=== PATIENT | female | born 1955 | race Two or more races ===

== ENCOUNTER 2025-01-23 10:03 | Outpatient (AMB) | payer MEDICARE, MEDICAID, SELFPAY ==
--- OUTSIDE RECORDS SUMMARY | 2025-01-23 09:45 | XMS_ITS | Encounter Summary ---
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 No 01/16/2025 Food Access & Nutrition Answer Date Rec orded Do you have access to a vari ety of food including fruits and vegetables? Yes 01/16/2025 Health Literacy Answer Date Recorded How often do you need to hav e someone help you when you read instructions, pamphlets, or other written material from your doctor or pharmacy? Never 01/16/2025 Caregiver: How often do you need to have someone help you when you read instructions, pamphlets, or other written material from your doctor or pharmacy? Not on file 01/16/2025 Financial Risk Answer Date Recorded How hard is it for you to pa y for the very basics like food, housing, medical care, and air conditioning / heating? Not very hard 01/16/2025 Transportation Answer Date Recorded Has the lack of transportati on kept you from meetings, work, or from getting things needed for daily living? No Has the lack of transportati on kept you from medical appointments or from getting medications? No 01/16/2025 Social Isolation Answer Date Recorded How often do you feel lonely or isolated from th ose around you? Never 01/16/2025 Food Risk Answer Date Recorded Within the past 12 months we worried whether our food would run out before we got money to buy more. Never true 01/16/2025 Within the past 12 months th e food we bought just didn't last and we didn't have money to get more. Never true 01/16/2025 Dependent Care Answer Date Recorded Do you need help finding or paying for care for your loved ones. For example, childcare provider or elderly care for an older adult? No 01/16/2025 Education Answer Date Recorded Do you think completing more education or training, like finishing a GED, going to college, or learning a trade, would be helpful for you? N/A 01/16/2025 Employment and Income Answer Date Recor ded During the last four weeks, have you been actively looking for work? No 01/16/2025 Living Situation Answer Date Recorded What is your living situation? Unrecognized valu e 01/16/2025 Interpersonal Safety Answer Date Record ed Physical Abuse Unrecognized value 11/13/2024 Verbal Abuse Unrecognized value 11/13/2024 Comments No Sex and Gender Information Value Date Recorded Sex Assigned at Female 11/08/2024 4:27 PM EDT Legal Sex Female 2:17 PM EST Gender Identity Female 11/08/2024 4:27 PM EDT Sexual Orientation Not on file documented as of this encounter Last Filed Vital Signs Vital Sign Reading Time Taken Comments Blood Pressure 138/73 01/23/2025 9:13 AM EST Pulse - - Temperature - - Respiratory Rate - - Oxygen Saturation - - Inhaled Oxygen Concentration - - Weight - - Height - - Body Mass Index - - documented in this encounter Progress Notes * Iris Cheng LPN - 01/23/2025 9:45 AM EST Patient presents for BP recheck. Denies headache, dizziness, blurred vision, chest pain, shortness of breath, palpitations, swelling, nausea, weakness, or confusion. Reports feeling well. Blood pressure today BP Readings from Last 2 Encounters: 01/23/25 138/73 01/16/25 (!) 164/78 Interventions/Education: Reinforced previous education on hypertension management: Importance of medication adherence; Heart-healthy diet (low sodium intake, balanced nutrition); Regular physical activity, as tolerated; Home BP monitoring and reporting abnormal readings; Avoiding tobacco and limiting alcohol intake; Notifying provider of new onset dizziness, blurred vision, chest pain, shortness of breath, palpitations, swelling, weakness, confusion, or headache unresolved with medication. Patient verbalized understanding and has no questions or concerns at this time. Plan: Blood pressure entered into flowsheet, and routed to provider per protocol. Follow-up in and continue current plan of care unless otherwise directed by provider. Pt has a follow up appt with pcp in April 2025 Cosigned by FRANCES Cabrera at 01/23/2025 9:32 AM EST documented in this encounter Plan of Treatment Upcoming Encounters Date Type Department Care Team (Late st Contact Info) Description 04/16/2025 8:00 AM EDT Office Visit Adult Medicine [address] [phone] Chelsey Mcwilliams MD [address] [place] [address] documented as of this encounter Visit Diagnoses Not on filedocumented in this encounter Additional Health Concerns Assessment Noted Time PHQ-9 Depression Total Score: 0 01/17/20 25 8:00 AM EST documented as of this encounter Care Teams Hot Iron Worker Relationship Specialty Start Date End Date Chelsey Mcwilliams MD [address] [place] [address] PCP - General Internal Medicine 01/10/24 documented as of this encounter
--- NOTE | 2025-01-23 10:24 | A.PHYSOV_ITS ---
Vital Signs 01/23/25 10:35 Height 5 ft Weight 182 lb BMI 35.5 Intake Visit Reasons: right hip injection Intake Note: Patient is a 69 year old female here for right hip and back pain. Director Of Institutional Research Required: No Director Of Institutional Research Services: Director Of Institutional Research Offered & Declined (Ros daughter is with her.) Allergies bee pollen Allergy (Unknown, Verified 01/23/25 10:26) Unknown [facility] Surgical History (Updated 01/23/25 @ 10:28 by Nikki Sharpe MA) History of cancer surgery Social History (Updated 01/23/25 @ 10:28 by Nikki Sharpe MA) Alcohol intake: current Alcohol intake frequency: does not drink Patient Tobacco Use Status: Never used Tobacco Use of substances other than those prescribed or required for medical reasons: No Physical Exam Vital Signs: BMI result Body Mass Index 35.5 Office Procedures AMB Hip Injection AMB Hip Injection Procedure Details: Right Greater trochanteric bursal injection: The risks, benefits and co mplications of the right greater trochanteric bursitis/gluteal tendinopathy were discussed with the patient, including but not limited to infection, increased serum glucose, nerve damage, bleeding and pain. All questions were answered to the patient's satisfaction. Verbal consent was obtained. The patient was eager to proceed. Patient was cleansed with Betadine, ethyl chloride was then used to desensitize the skin. Using an a 25-gauge needle 40 mg of Kenalog and 3 mL 2% lidocaine were injected over the greater trochanter of maximal tenderness. The patient tolerated the procedure well without immediate complication. Postinjection instructions were given. Hip (Bursa) Injection - : Right All charges added?: Procedure code (CPT) selection complete Office Meds Kenalog 40 mg/mL suspension for injection Performing Provider: FRANCES Torres Performing Location: [facility] Administered by: FRANCES Torres on 01/23/25 11:00 Dose Route Admin Location Dispensed Lot Number Expiration Date [facility] Long Distance Billing Operator 40 mg intrabursal 1 mL [id number] [employer] Total Dispensed Waste 1 mL 0 % lidocaine (PF) 20 mg/mL (2 %) injection solution Performing Provider: FRANCES Torres Performing Location: [facility] Administered by: FRANCES Torres on 01/23/25 11:00 Dose Route Admin Location Dispensed Lot Number Expiration Date [employer] Long Distance Billing Operator 60 mg intrabursal 5 mL [id number] [employer] Total Dispensed Waste 5 mL 40 % Assessment & Plan Assessment & Plan (1) Trochanteric bursitis, right hip: Code(s): M70.61 - Trochanteric bursitis, right hip Category: Medical Plan Ms. Wilkes is a 69-year-old female seen in evaluation today for right greater trochanteric bursitis. Today she consented to hip bursal injection. She was given post-injection instructions, recommend: Moist heat compresses for 15 minutes up to 5 times daily. Continue abduction exercises. She will monitor her glucose daily, if it elevates she will contact her primary care physician. Follow-up with our office as needed. Thank you for allowing me to participate in the care of your patient. Orders: Orders AMB Hip/Bursa Injection Today M70.61 - Trochanteric bursitis, right hip Coding Level of Care Code Procedure Only Diagnoses Trochanteric bursitis, right hip M70.61 CPT Codes AMB Hip Injection - Hip/Bursa Injection - 19323: Right ([id number])
[2025-01-23 10:35] VITALS: BMI 35.5
--- OUTSIDE RECORDS SUMMARY | 2025-01-23 12:23 | XMS_ITS | Clinical Summary ---
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 Activ e OMEGA-3 FATTY ACIDS ORAL Take by mouth. Acti ve meloxicam (MOBIC) 7.5 mg tablet Take 1 tablet (7.5 mg total) by mouth 1 (one) time each day if needed. for pain 024 Active albuterol HFA (PROAIR HFA ; PROVENTIL HFA ; VENTOLIN HFA) 90 mcg/actuation inhaler Inhale 2 puffs by mouth every 4 (four) hours if needed for wheezing. 18 g 1 025 Active atorvastatin (LIPITOR) 20 mg tablet Take 1 tablet (20 mg total) by mouth 1 (one) time each day. 90 each 3 025 2025 Active metFORMIN (GLUCOPHAGE) 850 mg tablet Take 1 tablet (850 mg total) by mouth 2 (two) times a day with meals. 180 each 025 2025 Active olmesartan (BENICAR) 40 mg tablet Take 1 tablet (40 mg total) by mouth 1 (one) time each day. 90 each 3 025 2025 Active miscellaneous medical supply miscIndications :Primary hypertension Used to check blood pressure once daily. 1 each Active walker miscIndications :Lumbar radicular pain,Lumbar nerve root impingement 1 Device 1 (one) time each day. Walker with seat 1 each Active indapamide (LOZOL) 2.5 mg tablet Take 1 tablet (2.5 mg total) by mouth 1 (one) time each day in the morning. 90 tablet Active amLODIPine (NORVASC) 5 mg tablet Take 1 tablet (5 mg total) by mouth 1 (one) time each day. 90 each 1 Active amLODIPine (NORVASC) 5 mg tablet Take 1 tablet (5 mg total) by mouth 1 (one) time each day. 90 each 025 2024 Discontinued(R eorder) polyethylene glycol (Golytely) 236-22.74-6.74 -5.86 gram solution Take 4L by mouth once for one dose. May substitue any PEG. Starting at 2PM the day before your procedure drink 1 8oz glasses at your own pace until you complete half of the gallon. Finish 2nd half of the gallon at 8PM. 4000 mL 025 2024 Discontinued(T herapy completed) bisacodyL (DULCOLAX) 5 mg EC tablet Take 2 tablets by mouth right before beginning bowel prep. See instructions provided by the office 2 tablet 2024 Discontinued(T herapy completed) indapamide (LOZOL) 1.25 mg tablet TAKE 1 TABLET BY MOUTH EVERY DAY 90 tablet 1 025 2024 Discontinued Active Problems Problem Noted Date Diagnosed Date Class 2 severe obesity due t o excess calories with serious comorbidity and body mass index (BMI) of 35.0 to 35.9 in adult 01/16/2025 Insomnia 09/22/2021 Mild persistent asthma with acute exacerbation 0 02/12/2020 Obstructive sleep apnea 07/13/2018 Overview (02/26/2024): [facility] Home Sleep Apnea Test: Date 07/11/2018; Wt 192#; BMI 34; CLAYTON 7, AI 2; HI 5; Unclassified apneas 2; Obstructive apneas 9; Central apneas 4; Mixed apneas 0; hypopneas 37; average oxygen saturation 95% (lowest 86% without saturations <88% for 5% or more of study) - Obstructive Sleep Apnea - mild; mostly hypopneas; without sleep related hypoventilation by 2019 home polysomnogram. Vitamin D deficiency 04/24/2017 Diabetes mellitus type 2, uncomplicated 04/07/19 18 Assessment & Plan (08/27/2024 9:30 AM EDT): Good control of diabetes. A1C: 7.7 Patient will continue with yearly Podiatric and Ophthomologic evaluations, will make an appt. Will continue Angiotensin Converting Enzyme Inhibitor for renal protection. Continue metformin 850 twice daily. Assessment & Plan (02/26/2024 12:15 PM EST): Good control of diabetes. A1C: 6.9 Patient will continue with yearly Podiatric and Ophthomologic evaluations, will make an appt. Will continue Angiotensin Converting Enzyme Inhibitor for renal protection. Continue metformin 850 twice daily. Patient will follow up in 6 months Orders: Comprehensive metabolic panel; Future Hemoglobin A1c; Future Lipid panel with reflex to direct LDL; Future Microalbumin creatinine urine ratio; Future Hypertension 04/06/2017 Assessment & Plan (08/27/2024 3:55 PM EDT): The patient's antihypertensive regimen is based on their underlying medical issues. At the time of this visit, the blood pressure is elevated, however she is very anxious today for a recent accident of her son in law. Currently on olmesartan, indapamide. Will not make any changes on her medications, as I think this is a situational reaction, recommended to check her BP at home, will follow up in one month. Assessment & Plan (02/26/2024 12:15 PM EST): The patient's antihypertensive regimen is based on their underlying medical issues. At the time of this visit, the blood pressure is well controlled on olmesartan, indapamide. The patient is instructed to follow a low sodium diet and to follow up in 6 months. Orders: Comprehensive metabolic panel; Future Hemoglobin A1c; Future Lipid panel with reflex to direct LDL; Future Microalbumin creatinine urine ratio; Future Lumbar radicular pain 04/06/2017 Pure hypercholesterolemia 04/06/2017 Assessment & Plan (08/27/2024 9:30 AM EDT): Given the patients cardiac risk profile, the patient requires an LDL cholesterol of less than 70, on target. Continue Atorvastatin. I have instructed the patient on the principles of a low cholesterol diet and the importance of regular exercise. Assessment & Plan (02/26/2024 12:15 PM EST): Given the patients cardiac risk profile, the patient requires an LDL cholesterol of less than 70, on target. Continue Atorvastatin. I have instructed the patient on the principles of a low cholesterol diet and the importance of regular exercise. Orders: Comprehensive metabolic panel; Future Hemoglobin A1c; Future Lipid panel with reflex to direct LDL; Future Microalbumin creatinine urine ratio; Future Encounters Date Type Department Care Team Description 01/23/2025 9:45 AM EST Clinical Support Adult Medicine [address] [phone] 01/16/2025 8:00 AM EST Office Visit Adult [address] [phone] Lexi Dietz PA Type 2 diabetes mellitus without complication, without long-term current use of insulin (CMS/HCC V24, CMS/HCC V28) (Primary Dx); Elevated blood pressure reading; Primary hypertension; Pure hypercholesterolemia ; Class 2 severe obesity due to excess calories with serious comorbidity and body mass index (BMI) of 35.0 to 35.9 in adult; Screening for depression; Encounter for screening involving social determinants of health (SDoH) 01/16/2025 Results Follow-Up Adult Medicine [address] [phone] Farrah Mac PA 01/14/2025 8:50 AM EST Lab Draw Station - [place] [address] [place] [address] Type 2 diabetes mellitus without complication, without long-term current use of insulin ([facility] V24, [facility] V28) 01/08/2025 Results Follow-Up Adult [facility] [address] [place] [address] Farrah Mac PA 01/07/2025 10:00 AM EST Ancillary Procedure [facility] [address] [place] [phone] Primary hypertension; LAE (left atrial enlargement) 11/13/2024 8:05 AM EDT Anesthesia Event [facility] [address] [place] [phone] Adonis Sheridan MD 11/13/2024 6:50 AM EDT - 11/13/2024 11:59 PM EDT Hospital Encounter [facility] [address] [place] [phone] Ana Sadler MD Spencer, Mark A, MD Family hx of colon cancer Discharge Disposition: Home or Self Care from Last 3 Months Immunizations Immunization Administration Dates Next Due Influenza Quadravalent, 0.5ml (Fluad) 65yo and o lder 12/13/2021 Influenza Quadrivalent, 0.5m l, preservative free (Fluarix; FluLaval; Fluzone) ages 6mo and older (Afluria) 3yo and older 10/28/2020 Influenza trivalent, 0.5mL (Fluad) 65yo and olde r 11/28/2024,10/25/2022 Influenza trivalent, 0.5mL ( Fluzone High-dose) 65yo and older 02/21/2024 Influenza trivalent, 0.5mL, preservative free (Fluarix; FluLaval; Fluzone) ages 6mo and older (Afluria) 3 years and older 12/06/2019,05/08/2015 PPD Test 04/26/2017 [employer] SARS-CoV-2 COVID-19, mRNA, LNP-S, preservative free 07/27/2020,07/03/2020 Pneumococcal conjugate 20 va lent (Prevnar 20, PCV 20) 2mo and older 02/21/2024,03/24/2023 Pneumococcal polysaccharide 23 valent (Pneumovax 23) 2yo and older 10/28/2020 Td Tetanus diptheria (Tdvax) 7yo and older 10/16 Tdap Tetanus diptheria acell ular pertussis (Boostrix; Adacel) 7yo and older 02/21/2024,01/10/2022 Surgical History Surgery Date Site/Laterality Comments TUBAL LIGATION PROCEDURE: HISTORICAL TUBAL LIGATION HYSTERECTOMY 07/29/2011 PROCEDURE: HISTORICAL TOTAL HYSTERECTOMY WITH BSO; COMMENT: recurrent LEEP & HSIL CERVICAL BIOPSY W/ LOOP ELECTRODE EXCISION PROCEDURE: DC CONIZATION CERVIX W/WO D&C RPR ELTRD EXC COLONOSCOPY 2009 PROCEDURE: HISTORICAL COLONOSCOPY; COMMENT: normal HYSTERECTOMY PROCEDURE:HYSTERECTOMY Medical History Medical History Date Comments White coat syndrome with hypertension DX:White coat syndrome with hypertension Hypertension DX:Hypertension Vitamin D deficiency 04/24/2017 DX:Vitamin D deficiency Diabetes mellitus type 2, uncomplicated (CMS/HCC V24, CMS/HCC V28) 04/06/2017 DX:Diabetes mellitus type 2, uncomplicated (HCC) Lumbar radicular pain 04/06/2017 DX:Lumbar radicular pain Pure hypercholesterolemia 04/06/2017 DX:Pur e hypercholesterolemia Seizures (CMS/HCC V24, CMS/HCC V28) DX:Seizures (HCC) Hypertension DX:Hypertension Diabetes mellitus (CMS/HCC V 24, CMS/HCC V28) DX:Diabetes mellitus (HCC) Pure hypercholesterolemia DX:Pur e hypercholesterolemia Family History Medical History Relation Name Comments No Known Problems Aunt Prostate cancer Brother No Known Problems Father No Known Problems Maternal Grandfather No Known Problems Maternal Grandmother No Known Problems Mother No Known Problems Other No Known Problems Paternal Grandfather No Known Problems Paternal Grandmother Breast cancer Sister 1 40 Other: Bone cancer Sister 1 40 Other: CA Breast, Colon cancer Sister 1 40 Other: Cervical Cancer, NACHO Sister 2 No Known Problems Uncle Blindness Neg Hx Cataracts Neg Hx Glaucoma Neg Hx Macular degeneration Neg Hx Strabismus Neg Hx Relation Name Status Comments Aunt Brother Father Maternal Grandfather Maternal Grandmother Mother Other Paternal Grandfather Paternal Grandmother Sister 1 40 Alive Sister 2 Uncle Social History Tobacco Use Types Packs/Day Years [...] care for your loved ones. For example, child care teacher or elderly care for an older adult? [...] PM EDT Sexual Orientation Not on file Obstetrics History Para Term AB IAB SAB Ectopic Multiple Livin g Live Births 2 2 2 2 Date Outcome GA Total Labor Labor/2nd/3rd Weight Sex Type Anes PTL Rajwinder A1 A5 Name Clin Term Term Last Filed Vital Signs Vital Sign Reading Time Taken Comments Blood Pressure 138/73 01/23/2025 9:13 AM EST Pulse 84 01/16/2025 8:06 AM EST Temperature 36.5 C (97.7 F) 01/16/2025 8:06 AM EST Respiratory Rate 15 01/16/2025 8:06 AM EST Oxygen Saturation 98% 01/16/2025 8:06 AM EST Inhaled Oxygen Concentration - - Weight 82 kg (180 lb 12.8 oz) 01/16/2025 8:06 AM EST Height 152.4 cm (5') 01/16/2025 8:06 AM EST Body Mass Index 35.31 01/16/2025 8:06 AM EST Plan of Treatment Upcoming Encounters Date Type Department Care Team (Late st Contact Info) Description 04/16/2025 8:00 AM EDT Office Visit Adult Medicine [address] [phone] Chelsey Mcwilliams MD [address] [place] [address] Health Maintenance Due Date Last Done Comments Diabetes: Annual Retina Eye Exam 11/04/1965 RSV Immunization Adult Patients (1 - Risk 50-74 years 1-dose series) 11/04/2005 Zoster Vaccines (1 of 2) 11/04/2005 Medicare Annual Wellness Visit 02/25/2025 02/26/2024 Diabetes: Blood Sugar Control Test (HGBA1C) 07/15/2025 01/14/2025, 08/20/2024, 12/14/2023, Additional history exists Diabetes: Annual Urine Albumin-Creatinine Ratio (uACR) 08/20/2025 08/20/2024 Falls Risk Assessment 11/13/2025 11/13/2024 Diabetes: Annual GFR (Glomerular Filtration Rate) 01/14/2026 01/14/2025, 08/20/2024, 12/14/2023 Hypertension/CHF/CAD Annual BMP Blood Test 01/14/2026 01/14/2025, 08/20/2024, 12/14/2023 Diabetes: Annual Foot Exam 01/16/2026 01/16/2025, Social Influencers of Health Screening 01/16/2026 01/16/2025 Breast Cancer Screening 04/30/2026 05/01/19, 12/07/2022, 12/02/2021, Additional history exists Osteoporosis Screening (Bone Density Screening) 04/30/2029 04/30/2024 Cholesterol Screening (Lipid Panel) 08/20/2029 08/20/2024, 12/14/2023 DTaP,Tdap,and Td Vaccines (4 - Td or Tdap) 02/20/2034 02/21/2024, 01/10/2022, 10/16/2017 Colorectal Cancer Screening: Colonoscopy 11/13/2034 11/13/2024 COVID-19 Vaccine Discontinued 12/13/2021, , 07/03/2020 Pneumococcal Vaccine: 50+ Years Completed 02/21/2024, 03/24/2023, 10/28/2020 Influenza Vaccine Completed 11/28/2024, , 10/25/2022, Additional history exists Depression Screening Completed 01/16/2025 HIB Vaccines Aged Out No longer eligi ble based on patient's age to complete this topic HPV Vaccines Aged Out No longer eligi ble based on patient's age to complete this topic Hepatitis A Vaccines Aged Out No long er eligible based on patient's age to complete this topic Hepatitis B Vaccines Aged Out No long er eligible based on patient's age to complete this topic Hepatitis C Screening Discontinued IPV Vaccines Aged Out No longer eligi ble based on patient's age to complete this topic MMR Vaccines Aged Out No longer eligi ble based on patient's age to complete this topic Meningococcal ACWY Vaccine Aged Out N o longer eligible based on patient's age to complete this topic Meningococcal B Vaccine Aged Out No l onger eligible based on patient's age to complete this topic RSV Immunization Patients Under 20 months Aged Out No longer eligible based on patient's age to complete this topic Varicella Vaccines Aged Out No longer eligible based on patient's age to complete this topic Procedures Procedure Name Priority Date/Time Associated Diagnosis Comments HEMOGLOBIN A1C Routine 01/14/2025 9:04 AM EST Type 2 diabetes mellitus without complication, without long-term current use of insulin ([facility] V24, [facility] V28) COMPREHENSIVE METABOLIC PANEL Routine 01/14/2025 9:04 AM EST Type 2 diabetes mellitus without complication, without long-term current use of insulin ([facility] V24, [facility] V28) TRANSTHORACIC ECHOCARDIOGRAM (TTE) COMPLETE Routine 01/07/2025 10:33 AM EST Primary hypertension LAE (left atrial enlargement) COLONOSCOPY Routine 11/13/2024 8:35 AM EDT Family hx of colon cancer MICROALBUMIN CREATININE URINE RATIO Routine 08/20/2024 9:32 AM EDT Encounter for general adult medical examination without abnormal findings Type 2 diabetes mellitus without complication, without long-term current use of insulin ([facility] V24, [facility] V28) Primary hypertension Pure hypercholesterolemia LIPID PANEL WITH REFLEX TO DIRECT LDL Routine 08/20/2024 9:32 AM EDT Encounter for general adult medical examination without abnormal findings Type 2 diabetes mellitus without complication, without long-term current use of insulin ([facility] V24, [facility] V28) Primary hypertension Pure hypercholesterolemia BD BONE DENSITY DXA AXIAL SKELETON Routine 04/30/2024 10:39 AM EDT Encounter for screening for osteoporosis MG MAMMO DIGITAL SCREENING W HAYDEN BILAT Routine 04/30/2024 10:17 AM EDT Encounter for screening mammogram for breast cancer from Last 3 Months or Most Recently Relevant to Health Maintenance Results * (ABNORMAL) Hemoglobin A1c (01/14/2025 9:04 AM EST) Hemoglobin A1C 6.5(H) <6.5 % LAB CHEMISTRY METHOD 01/16/2025 1:25 PM EST [facility] Mean Bld Glu Estim. 140 mg/dL LAB CHEMISTRY METHOD 01/16/2025 1:25 PM [facility] Blood Venous blood specimen / Unknown Venipuncture / Unknown 01/14/2025 9:04 AM EST 01/14/2025 9:04 AM EST Farrah DANIELS LAB BLOOD ORDERABLES Final Resul t [facility] [address] [place] [address], * (ABNORMAL) Comprehensive metabolic panel (01/14/2025 9:04 AM EST) Pathologist [facility] Sodium 139 133 - 145 mmol/L 01/14/2025 1:49 PM [facility] Potassium 3.9 3.5 - 5.5 mmol/L 01/14/2025 1:49 PM [facility] Chloride 99 96 - 110 mmol/L 01/14/2025 1:49 PM [facility] CO2 29 21 - 32 mmol/L 01/14/2025 1:49 PM [facility] Anion Gap 11 3 - 11 01/14/2025 1:49 PM [facility] Glucose 106(H) 70 - 100 mg/dL 01/14/2025 1:49 PM [facility] BUN 10 5 - 25 mg/dL 01/14/2025 1:49 PM [facility] Creatinine 0.72 0.50 - 1.10 mg/dL 01/14/2025 1:49 PM [facility] eGFR 91 >=60 mL/min/1. 73m2 01/14/2025 1:49 PM [facility] Comment:Calculation based on the Chronic Kidney Disease Epidemiology Collaboration (CKD-EPI) equation refit without adjustment for race. BUN/Creatinine Ratio 13.9 01/14/2025 1:49 PM [facility] Calcium 9.0 8.5 - 10.5 mg/dL 01/14/2025 1:49 PM [facility] AST (SGOT) 15 10 - 42 unit/L 01/14/2025 1:49 PM [facility] ALT (SGPT) 13 10 - 60 unit/L 01/14/2025 1:49 PM [facility] Alkaline Phosphatase 104 42 - 121 unit/L 01/14/2025 1:49 PM [facility] Total Protein 7.6 6.0 - 8.0 g/dL 01/14/2025 1:49 PM [facility] Albumin 4.6 3.2 - 5.0 g/dL 01/14/2025 1:49 PM [facility] Total Bilirubin 0.7 0.0 - 1.4 mg/dL 01/14/2025 1:49 PM [facility] Blood Venous blood specimen / Unknown Venipuncture / Unknown 01/14/2025 9:04 AM EST 01/14/2025 9:04 AM EST us Farrah DANIELS LAB BLOOD ORDERABLES Final Resul t [facility] [address] [place] [address], [place] [phone] * (ABNORMAL) TRANSTHORACIC ECHOCARDIOGRAM (TTE) COMPLETE (01/07/2025 10:33 AM EST) Left Atrium Minor [place] 5.2 cm CV PACS Left Atrium Major [place] 5.8 cm CV PACS LA Area Sys (A2C) 19 cm2 CV PACS LA Area Sys (A4C) 19 cm2 CV PACS LA Volume (BP) 57 mL CV PACS RA Area 13.7 cm2 CV PACS RA 2D Volume 30 mL CV PACS AV Mean Gradient 10 mmHg CV PACS Ao VTI 37.5 cm CV PACS AV Peak Dick 2.0 m/s CV PACS AV Peak Gradient 16 mmHg CV PACS AV Area Continuity Equation 1.7 cm2 CV PACS AV Area Peak Velocity 1.6 cm2 CV PACS Aortic Sinus Valsalva 3.1 cm CV PACS Ascending Aorta 3.2 cm CV PACS IVSD 1.1(A) 0.6 - 0.9 cm CV PACS LVIDD 4.3 3.8 - 5.2 cm CV PACS LVIDS 2.7 2.2 - 3.5 cm CV PACS LVOT Diameter 1.9 cm CV PACS LVOT Mean Dick 0.8 m/s CV PACS LVOT Mean Grad 3 mmHg CV PACS LVOT Mean Grad 3 mmHg CV PACS LVOT Peak VTI 22.3 cm CV PACS LVOT Peak Dick 1.1 m/s CV PACS LVOT Peak Gradient 5 mmHg CV PACS LVPWD 1.1(A) 0.6 - 0.9 cm CV PACS MV E' Tissue Velocity Lateral 9 cm/s CV PACS MV E' Tissue Velocity Septal 10 cm/s CV PACS LVOT Area 2.8 cm2 CV PACS LVOT Stroke Volume 63 mL CV PACS MV Deceleration Pettis 6.7 m/s2 CV PACS E Wave Deceleration Time 144 119 - 242 ms CV PACS MV PHT 42 ms CV PACS MV Peak A Dick 1.31 m/s CV PACS MV Peak E Dick 0.96 m/s CV PACS MV Mean Gradient 3 mmHg CV PACS MV Mean Gradient 3 mmHg CV PACS MV VTI 26.4 cm CV PACS Mitral Valve Max Velocity 1.3 m/s CV PACS MV Peak Gradient 7 mmHg CV PACS MV Area PHT 5.2 cm2 CV PACS MV Area Continuity Equation 2.4 cm2 CV PACS PV Acceleration Time 85 ms CV PACS PV Acceleration Time 88 ms CV PACS PV Acceleration Time 87 ms CV PACS RV Diastolic Basal Dimension 3.8 2.5 - 4.1 cm CV PACS RV S' 15 cm/s CV PACS TAPSE 20 mm CV PACS TR Peak Velocity 1.47 m/s CV PACS TR Peak Gradient 9 mmHg CV PACS E/E' Ratio Septal 10 CV PACS E/E' Ratio Averaged 10 CV PACS Relative Wall Thickness ratio 0.51 CV PACS LVOT:AV VTI Index 0.59 CV PACS FS 37 % CV PACS LV Mass 2D 163 g CV PACS MV VTI:LVOT VTI ratio 1.2 CV PACS LVOT flow 227 mL/s CV PACS AV Velocity Ratio 0.55 CV PACS E/A Ratio 0.7 CV PACS E/E' Ratio Lateral 11 CV PACS BSA 1.84 m2 CV PACS LA Volume Index (BP) 32 mL/m2 CV PACS LVIDD Index 2.43 cm/m2 CV PACS LVIDS Index 1.53 cm/m2 CV PACS LV Mass Index 2D 92(A) 44 - 88 g/m2 CV PACS LVOT Stroke Index 36 mL/m2 CV PACS RA 2D Volume Index 17 15 - 27 mL/m2 CV PACS LIZETTE Index (VTI) 0.95 cm2/m2 CV PACS LIZETTE Index (Pk Dick) 0.90 cm2/m2 CV PACS Ascending Aorta Index 1.81 cm/m2 CV PACS Anatomical Region Laterality Modality Ultrasound Narrative 01/08/2025 9:03 AM EST Left ventricle cavity size is normal. Left ventricular systolic function is in the normal range with an ejection fraction of 60-65%. There are no wall motion abnormalities. Wall thickness is normal. There is no diastolic dysfunction. Right ventricle cavity is normal. Right ventricular systolic function is normal. Left and right atria are normal. No significant valvular abnormalities. No prior echo for comparison. Left Ventricle Left ventricle cavity size is normal. Wall thickness is normal. Systolic function is normal with an ejection fraction of 60-65%. There are no regional LV wall motion abnormalities. There is no diastolic dysfunction. Right Ventricle Right ventricle cavity appears normal. Systolic function is normal. Left Atrium Left atrium cavity size is normal. Left atrium cavity is at upper limits of normal. Right Atrium Right atrium cavity is normal. IVC/SVC Inferior vena cava structure is normal. RA pressures is estimated to be 3 mmHg (IVC diameter <21 mm and decreases >50% during inspiration). Mitral Valve The leaflets are mildly thickened. There is trace regurgitation. There is no evidence of mitral valve stenosis. Tricuspid Valve Tricuspid valve structure is normal. There is trace regurgitation. There is no evidence of tricuspid valve stenosis. Aortic Valve The aortic valve is trileaflet. The leaflets are mildly thickened. There is no significant regurgitation. There is no evidence of aortic valve stenosis. Pulmonic Valve Visualized portions of the pulmonic valve appear normal. There is trace pulmonic valve regurgitation. There is no evidence of pulmonic valve stenosis. Ascending Aorta The aorta appears normal in size. Pericardium Pericardium appears normal. There is no pericardial effusion. Study Details Overall the study quality was adequate. Wall Scoring Baseline Score Index: 1.00 The left ventricular wall motion is normal. Farrah DANIELS ECHO PROCEDURES Final Result * COLONOSCOPY Anesthesia - MAC; [facility] ENDOSCOPY (11/13/2024 8:35 AM EDT) Anatomical Region Laterality Modality Endoscopy 11/13/2024 8:06 AM EDT Impressions 11/13/2024 8:38 AM EDT - Severe diverticulosis in the sigmoid colon. There was narrowing of the colon in association with the diverticular opening. There was evidence of diverticular spasm. Britney-diverticular erythema was seen. - Internal hemorrhoids. - The examination was otherwise normal. - No specimens collected. Recommendation: - Discharge patient to home. - Repeat colonoscopy in 5 years for screening purposes. Narrative 11/13/2024 8:38 AM EDT [facility] GI Patient Name: Miguel Wilkes Procedure Date: 11/13/2024 8:06 AM Date of : 1955 Age: 69 Gender: Female Note Status: Finalized Attending MD: Ana Sadler MD, Procedure Date No Time: 11/13/2024 Procedure: Colonoscopy Indications: Screening in patient at increased risk: Colorectal cancer in sister before age 60 Providers: Ana Sadler MD Referring MD: Ki Blair DO Medicines: Monitored Anesthesia Care Complications: No immediate complications. Estimated blood loss: None. Estimated Blood Loss: Estimated blood loss: none. Procedure: Pre-Anesthesia Assessment: - Prior to the procedure, a History and Physical was performed, and patient medications and allergies were reviewed. The patient is competent. The risks and benefits of the procedure and the sedation options and risks were discussed with the patient. All questions were answered and informed consent was obtained. Patient identification and proposed procedure were verified by the physician, the nurse, the supervisor erection shop and the biodiesel production technician in the pre-procedure area in the endoscopy suite. Mental Status Examination: alert and oriented. Airway Examination: normal oropharyngeal airway and neck mobility. Respiratory Examination: clear to auscultation. CV Examination: normal. Prophylactic Antibiotics: The patient does not require prophylactic antibiotics. Prior Anticoagulants: The patient has taken no anticoagulant or antiplatelet agents. ASA Grade Assessment: II - A patient with mild systemic disease. After reviewing the risks and benefits, the patient was deemed in satisfactory condition to undergo the procedure. The anesthesia plan was to use monitored anesthesia care (MAC). Immediately prior to administration of medications, the patient was re-assessed for adequacy to receive sedatives. The heart rate, respiratory rate, oxygen saturations, blood pressure, adequacy of pulmonary ventilation, and response to care were monitored throughout the procedure. The physical status of the patient was re-assessed after the procedure. After I obtained informed consent, the scope was passed under direct vision. Throughout the procedure, the patient's blood pressure, pulse, and oxygen saturations were monitored continuously. The Colonoscope was introduced through the anus and advanced to the cecum, identified by appendiceal orifice and ileocecal valve. The patient tolerated the procedure well. The quality of the bowel preparation was good. The colonoscopy was unusually difficult due to multiple diverticula in the colon and restricted mobility of the colon. Successful completion of the procedure was aided by withdrawing the scope and replacing with the pediatric colonoscope. The patient tolerated the procedure well. The quality of the bowel preparation was good. Findings: The perianal and digital rectal examinations were normal. Multiple small-mouthed diverticula were found in the sigmoid colon. There was narrowing of the colon in association with the diverticular opening. There was evidence of diverticular spasm. Britney-diverticular erythema was seen. Internal hemorrhoids were found during retroflexion. The hemorrhoids were Grade II (internal hemorrhoids that prolapse but reduce spontaneously). The exam was otherwise without abnormality. Procedure Code(s): --- Professional --- G0105, Colorectal cancer screening; colonoscopy on individual at high risk Diagnosis Code(s): --- Professional --- Z80.0, Family history of malignant neoplasm of digestive organs CPT copyright 2020 [employer]. All rights reserved. The codes documented in this report are preliminary and upon city bus driver review may be revised to meet current compliance requirements. Ana Sadler MD 11/13/2024 8:38:44 AM This report has been signed electronically.Ana Sadler MD Number of Addenda: 0 Note Initiated On: 11/13/2024 8:06 AM Scope Withdrawal Time: 0 hours 8 minutes 30 seconds Scope In: 8:11:54 AM Scope Out: 8:35:00 AM Endoscopy Department at [facility] - [address] [place] [id number] Procedure Note Ana Sadler MD - 11/13/2024 [facility] GI Patient Name: Miguel iWlkes Procedure Date: 11/13/2024 8:06 AM Date of : 1955 Age: 69 Gender: Female Note Status: Finalized Attending MD: Ana Sadler MD, Procedure Date No Time: 11/13/2024 Procedure: Colonoscopy Indications: Screening in patient at increased risk: Colorectal cancer in sister before age 60 Providers: Ana Sadler MD Referring MD: Ki Blair DO Medicines: Monitored Anesthesia Care Complications: No immediate complications. Estimated blood loss:None. Estimated Blood Loss: Estimated blood loss: none. Procedure: Pre-Anesthesia Assessment: - Prior to the procedure, a History and Physicalwas performed, and patient medications and allergieswere reviewed. The patient is competent. The risks and benefits of the procedure and the sedation optionsand risks were discussed with the patient. Allquestions were answered and informed consent was obtained. Patient identification and proposed procedure were verified by the physician, the nurse, theanesthetist and the biodiesel production technician in the pre-procedure area in the endoscopy suite. Mental Status Examination: alertand oriented. Airway Examination: normal oropharyngeal airway and neck mobility. Respiratory Examination: clear to auscultation. CV Examination: normal. Prophylactic Antibiotics: The patient does notrequire prophylactic antibiotics. Prior Anticoagulants: The patient has taken no anticoagulant or antiplatelet agents. ASA Grade Assessment: II - A patient withmild systemic disease. After reviewing the risks and benefits, the patient was deemed in satisfactory condition to undergo the procedure. The anesthesia plan was to use monitored anesthesia care (MAC). Immediately prior to administration of medications, the patient was re-assessed for adequacy to receive sedatives. The heart rate, respiratory rate, oxygen saturations, blood pressure, adequacy of pulmonary ventilation, and response to care were monitored throughout the procedure. The physical status ofthe patient was re-assessed after the procedure. After I obtained informed consent, the scope was passed under direct vision. Throughout theprocedure, the patient's blood pressure, pulse, and oxygen saturations were monitored continuously. The Colonoscope was introduced through the anus and advanced to the cecum, identified by appendiceal orifice and ileocecal valve. The patient toleratedthe procedure well. The quality of the bowelpreparation was good. The colonoscopy was unusually difficultdue to multiple diverticula in the colon and restricted mobility of the colon. Successful completion of the procedure was aided by withdrawing the scope and replacing with the pediatric colonoscope. Thepatient tolerated the procedure well. The quality of thebowel preparation was good. Findings: The perianal and digital rectal examinations were normal. Multiple small-mouthed diverticula were found inthe sigmoid colon. There was narrowing of the colon in association with the diverticular opening. Therewas evidence of diverticular spasm. Britney-diverticular erythema was seen. Internal hemorrhoids were found duringretroflexion. The hemorrhoids were Grade II (internal hemorrhoids that prolapse but reduce spontaneously). The exam was otherwise without abnormality. Procedure Code(s): --- Professional --- G0105, Colorectal cancer screening; colonoscopy on individual at high risk Diagnosis Code(s): --- Professional --- Z80.0, Family history of malignant neoplasm of digestive organs CPT copyright 2020 [employer]. All rights reserved. The codes documented in this report are preliminary and upon city bus driver reviewmay be revised to meet current compliance requirements. Ana Sadler MD 11/13/2024 8:38:44 AM This report has been signed electronically.Ana Sadler MD Number of Addenda: 0 Note Initiated On: 11/13/2024 8:06 AM Scope Withdrawal Time: 0 hours 8 minutes 30 seconds Scope In: 8:11:54 AM Scope Out: 8:35:00 AM Endoscopy Department at [facility] - [address] [place] [phone] IMPRESSION: - Severe diverticulosis in the sigmoid colon. There was narrowing of the colon in association with the diverticular opening. There was evidence of diverticular spasm. Britney-diverticular erythema was seen. - Internal hemorrhoids. - The examination was otherwise normal. - No specimens collected. Recommendation: - Discharge patient to home. - Repeat colonoscopy in 5 years for screeningpurposes. us Ki Blair DO GI~PROCEDURE ORDERABLES Final Re sult * Lipid panel with reflex to direct LDL (08/20/2024 9:32 AM EDT) Cholesterol 171 0 - 200 mg/dL LAB CHEMISTRY METHOD 08/20/2024 12:19 PM [facility] Triglycerides 99 0 - 150 mg/dL LAB CHEMISTRY METHOD 08/20/2024 12:19 PM [facility] HDL 53 >=40 mg/dL LAB CHEMISTRY METHOD 08/20/2024 12:19 PM [facility] LDL Calculated 98 0 - 100 mg/dL LAB CHEMISTRY METHOD 08/20/2024 12:19 PM [facility] VLDL Cholesterol Johnnie 19.8 mg/dL LAB CHEMISTRY METHOD 08/20/2024 12:19 PM [facility] Non HDL Chol. (LDL+VLDL) 118 <145 mg/dL LAB CHEMISTRY METHOD 08/20/2024 12:19 PM [facility] Chol/HDL Ratio 3.2 0.0 - 4.4 LAB CHEMISTRY METHOD 08/20/2024 12:19 PM [facility] Blood Venous blood specimen / Unknown Venipuncture / Unknown 08/20/2024 9:32 AM EDT 08/20/2024 9:32 AM EDT Chelsey Mcwilliams MD LAB BLOOD ORDERABL ES Final Result Performing Organization Address [facility]/ZIP Co de Phone Number [facility] [address] [place] [address], [place] [phone] * Microalbumin creatinine urine ratio (08/20/2024 9:32 AM EDT) Creatinine, Urine 127.0 mg/dL LAB CHEMISTRY METHOD 08/20/2024 1:14 PM EDT [facility] Microalb, Ur 12.0 0.0 - 29.0 mg/L LAB CHEMISTRY METHOD 08/20/2024 1:14 PM EDT [facility] Microalb/Creat Ratio 9 <30 mg/g creat LAB CHEMISTRY METHOD 08/20/2024 1:14 PM EDT [facility] Urine Urine specimen obtained by clean catch procedure / Unknown Non-blood Collection / Unknown 08/20/2024 9:32 AM EDT 08/20/2024 9:32 AM EDT Chelsey Mcwilliams MD LAB URINE ORDERABL ES Final Result Performing Organization Address [facility] de Phone Number [facility] [address] [place] [address], [place] [phone] * BD Bone Density DXA Axial Skeleton (04/30/2024 10:39 AM EDT) Anatomical Region Laterality Modality Wrist, Hip, L-spine Bone Densito metry 04/30/2024 8:05 PM EDT Impressions 04/30/2024 8:06 PM EDT Normal bone density. The NOF guidelines recommend that FDA approved medical therapies be considered in postmenopausal women and men age >50 years with a: i. Hip or vertebral (clinical or morphometric) fracture ii. T score of < -2.5 at the spine or hip iii. 10 year fracture probability by FRAX of >3% for hip fracture, or >20% for major osteoporotic fracture PLEASE NOTE: W.H.O. classification is based on lowest measured density at the spine, femoral neck, or total hip.This classification has prognostic significance when applied to post menopausal women and older men. 1) The World Health Organization defines low BMD as follows: T-score Normal at or > -1 Osteopenia < -1 and > -2.5 Osteoporosis at or < -2.5 without fractures Established osteoporosis < -2.5 with fractures -------- FINAL REPORT -------- Dictated By: Carlos Pillai Dictated Date: 04/30/2024 20:05 ET Assigned Physician: Carlos Pillai Reviewed and Electronically Signed By: Carlos Pillai Signed Date: 04/30/2024 20:06 ET Workstation ID: [id number] Transcribed By: Self Edit Transcribed Date: 04/30/2024 20:05 ET Narrative 04/30/2024 8:06 PM EDT Clinical history: Z13.820 Scans of the lumbar spine and hips were performed on a [employer] fan beam bone densitometer. Bone mineral density measurements and associated T and Z scores respectively are as follows: Lumbar Spine: L1-L4 BMD: 0.992 g/cm2 T-Score: -0.5 Z-Score: 1.5 Left Proximal Femur: Neck BMD: 0.742 g/cm2 T-Score: -1.0 Z-Score: 0.5 Total BMD: 0.900 g/cm2 T-Score: -0.3 Z-Score: 0.9 Compared with standards for the young adult, lowest measured bone density places the patient in the W.H.O. normal range. Procedure Note Carlos Pillai MD - 04/30/2024 Clinical history: Z13.820 Scans of the lumbar spine and hips were performed on a [employer] beam bone densitometer. Bone mineral density measurements and associated T and Z scoresrespectively are as follows: Lumbar Spine: L1-L4 BMD: 0.992 g/cm2 T-Score: -0.5 Z-Score: 1.5 Left Proximal Femur: Neck BMD: 0.742 g/cm2 T-Score: -1.0 Z-Score: 0.5 Total BMD: 0.900 g/cm2 T-Score: -0.3 Z-Score: 0.9 Compared with standards for the young adult, lowest measured bone densityplaces the patient in the W.H.O. normal range. IMPRESSION: Normal bone density. The NOF guidelines recommend that FDA approved medical therapies beconsidered in postmenopausal women and men age >50 years with a: i. Hip or vertebral (clinical or morphometric) fracture ii. T score of < -2.5 at the spine or hip iii. 10 year fracture probability by FRAX of >3% for hip fracture, or >20%for major osteoporotic fracture PLEASE NOTE: W.H.O. classification is based on lowest measured density at the spine,femoral neck, or total hip.This classification has prognostic significancewhen applied to post menopausal women and older men. 1) The World Health Organization defines low BMD as follows: T-score Normal at or > -1 Osteopenia < -1 and > -2.5 Osteoporosis at or < -2.5 withoutfractures Established osteoporosis < -2.5 with fractures -------- FINAL REPORT -------- Dictated By: Carlos Pillai Dictated Date: 04/30/2024 20:05 ET Assigned Physician: Carlos Pillai Reviewed and Electronically Signed By: Carlos Pillai Signed Date: 04/30/2024 20:06 ET Workstation ID: [id number] Transcribed By: Self Edit Transcribed Date: 04/30/2024 20:05 ET us Chelsey Mcwilliams MD IMMinisterio DXA PROCEDURES Final Result * MG Mammo Digital Screening w Hayden bilat (04/30/2024 10:17 AM EDT) Anatomical Region Laterality Modality Breast Bilateral Mammography 04/30/2024 5:27 PM EDT Impressions 04/30/2024 5:30 PM EDT 1. No mammographic evidence of malignancy 2. Scattered fibroglandular tissue BI-RADS CATEGORY: 2 - BENIGN RECOMMENDATION: Screening bilateral mammogram is recommended in 1 year. Mammo Location: [facility], [address] [place] [address], [id number], . -------- FINAL REPORT -------- Dictated By: Carlos Pillai Dictated Date: 04/30/2024 17:27 ET Assigned Physician: Carlos Pillai Reviewed and Electronically Signed By: Carlos Pillai Signed Date: 04/30/2024 17:30 ET Workstation ID: [id number] Transcribed By: Self Edit Transcribed Date: 04/30/2024 17:27 ET Narrative 04/30/2024 5:30 PM EDT A BILATERAL DIGITAL 3D SCREENING MAMMOGRAPHY HISTORY: Routine screening. Family history of breast cancer in sister. COMPARISON: Multiple priors dating back to 10/31/2019 Technique: Bilateral full field digital mammography (3D) was performed using standard CC and MLO projections CAD was used to evaluate this mammogram. FINDINGS: Right: No suspicious masses, groups of microcalcification or areas of architectural distortion identified. Stable typically benign parenchymal asymmetries. Left: No suspicious masses, groups of microcalcification or areas of architectural distortion identified. Stable typically benign parenchymal asymmetries. BREAST DENSITY: B - There are scattered areas of fibroglandular density. Procedure Note Carlos Pillai MD - 04/30/2024 A BILATERAL DIGITAL 3D SCREENING MAMMOGRAPHY HISTORY: Routine screening. Family history of breast cancer in sister. COMPARISON: Multiple priors dating back to 10/31/2019 Technique: Bilateral full field digital mammography (3D) was performedusing standard CC and MLO projections CAD was used to evaluate this mammogram. FINDINGS: Right: No suspicious masses, groups of microcalcification or areas ofarchitectural distortion identified. Stable typically benign parenchymalasymmetries. Left: No suspicious masses, groups of microcalcification or areas ofarchitectural distortion identified. Stable typically benign parenchymalasymmetries. BREAST DENSITY: B - There are scattered areas of fibroglandular density. IMPRESSION: 1. No mammographic evidence of malignancy 2. Scattered fibroglandular tissue BI-RADS CATEGORY: 2 - BENIGN RECOMMENDATION: Screening bilateral mammogram is recommended in 1 year. Mammo Location: [facility], [address] [place] [address], [id number], . -------- FINAL REPORT -------- Dictated By: Carlos Pillai Dictated Date: 04/30/2024 17:27 ET Assigned Physician: Carlos Pillai Reviewed and Electronically Signed By: Carlos Pillai Signed Date: 04/30/2024 17:30 ET Workstation ID: [id number] Transcribed By: Self Edit Transcribed Date: 04/30/2024 17:27 ET Chelsey Mcwilliams MD IMG BI PROCEDURES Final Result from Last 3 Months or Most Recently Relevant to Health Maintenance Insurance MEDICAID - [place] [facility] MEDICARE ADVANTAGE on file Care Teams Flatwork Finisher Relationship Specialty Start Date End Date Chelsey Mcwilliams MD [address] [place] [phone] PCP - General Internal Medicine 01/10/24
--- OUTSIDE RECORDS SUMMARY | 2025-01-23 12:23 | XMS_ITS ---
Author Name [facility] Organization Unknown History of Medication Use Medication Directions Dispensed Refills Start Date End Date Stat us atorvastatin (LIPITOR) tablet 20 mg Take 1 tablet (20 mg total) by mouth daily. 03/24/2023 active indapamide (LOZOL) 1.25 MG tablet Take 1 tablet (1.25 mg total) by mouth daily. 03/24/2023 active metFORMIN (GLUCOPHAGE) 850 MG tablet TAKE 1 TABLET BY MOUTH TWICE A DAY WITH FOOD 03/24/2023 active olmesartan (BENICAR) tablet 40 mg Take 1 tablet (40 mg total) by mouth daily. 12/22/2022 active Acetaminophen (TYLENOL ARTHRITIS PAIN PO) Take by mouth. ac tive Problems Problem Status Onset Date Problem Type Date of Resolution Source Syncope and collapse active EncounterDiagnosisAct CTTHNE MG Vitamin D deficiency, unspecified active EncounterDiagnosisAct CTTHNE MG Care Team Organization Name Specialty Phone Email Start Date End Da te [facility] Chelsey Easley Primary Care 10/13/2022 09/25/2023 [facility] Termed, PROVIDER Primary Care 06/13/202209/06 [facility] Karen Coronel Primary Care 02/14/2022
--- OUTSIDE RECORDS SUMMARY | 2025-01-23 12:23 | XMS_ITS | Clinical Summary ---
Author Organization [facility] Prior to 07/06/[address] [place] [id number] Care Team Providers Care Construction Field Engineer Name Role Phone Chelsey Easley MD Primary Care Prov ider Allergies No known active allergies Medications Medication Sig Dispensed Refills Start Date End Date Status atorvastatin (LIPITOR) tablet 20 mg Take 1 tablet (20 mg total) by mouth daily. 0 03/24/2023 Active indapamide (LOZOL) 1.25 MG tablet Take 1 tablet (1.25 mg total) by mouth daily. 0 03/24/2023 Active metFORMIN (GLUCOPHAGE) 850 MG tablet TAKE 1 TABLET BY MOUTH TWICE A DAY WITH FOOD 0 03/24/2023 Active olmesartan (BENICAR) tablet 40 mg Take 1 tablet (40 mg total) by mouth daily. 0 12/22/2022 Active Acetaminophen (TYLENOL ARTHRITIS PAIN PO) Take by mouth. 0 Active Savage-3 Fatty Acids (OMEGA-3 FISH OIL PO) Take by mouth. 0 Active ergocalciferol (VITAMIN D2) capsule 83064 units Take 1 capsule (50,000 Units total) by mouth once a week. 4 capsule 12 05/18/2023 Active albuterol 108 (90 Base) MCG/ACT inhaler INHALE 2 PUFFS INTO THE LUNGS EVERY 4 HOURS NEEDED FOR COUGH OR WHEEZING. 0 07/06/2023 Active vitamin B-12 (CYANOCOBALAMIN) tablet 1000 mcg TAKE 1 TABLET BY MOUTH EVERY DAY 90 tablet 1 10/24/2023 Active Social History Tobacco Use Types Packs/Day Years Used Date Smoking Tobacco: Never Assessed Sex and Gender Information Value Date Recorded Sex Assigned at Female 04/10/2023 8:21 AM EST Gender Identity Not on file Sexual Orientation Not on file Job Start Date Occupation Industry Not on file Not on file Not on file Last Filed Vital Signs Vital Sign Reading Time Taken Comments Blood Pressure 161/80 08/03/2023 10:12 AM EDT Pulse 78 08/03/2023 10:12 AM EDT Temperature 36.4 C (97.5 F) 08/03/2023 10:12 AM EDT Respiratory Rate - - Oxygen Saturation 98% 08/03/2023 10:12 AM EDT Inhaled Oxygen Concentration - - Weight 83.6 kg (184 lb 6.4 oz) 08/03/2023 10:12 AM EDT Height 160 cm (5' 3 ) 08/03/2023 10:12 AM EDT Body Mass Index 32.66 08/03/2023 10:12 AM EDT Plan of Treatment Health Maintenance Due Date Last Done Comments Hepatitis C Screening 1955 Depression Screening 1967 Preventative Health Evaluation 11/04/1973 Colon Cancer Screening (Colonoscopy) 11/04/2000 Breast Cancer Screening (Mammogram) 11/04/2005 Shingrix-Zoster Vaccine (1 o f 2) 11/04/2005 Fall Risk Assessment 11/04/2020 Osteoporosis Screening (DEXA Scan) 11/04/2020 COVID-19 Vaccine (3 - 2024-2 6 season) 2024 07/27/2020, 07/03/2020 Influenza Vaccine (#1) 2024 3, 12/06/2019, 05/08/2015 RSV Adult > 60+ Yrs or (1 - 1-dose 75+ series) 11/04/2030 DTap / Tdap / Td (2 - Td or Tdap) 01/11/2032 01/10/2022 Pneumococcal Vaccine Completed 03/24/2023 Hepatitis B Vaccines Aged Out No long er eligible based on patient's age to complete this topic RSV Ped < 20 months Aged Out No longe r eligible based on patient's age to complete this topic Care Teams Construction Field Engineer Relationship Specialty Start Date End Date Chelsey Easley MD [address] [place] [address] PCP - General Internal Medicine 04/03/23
--- OUTSIDE RECORDS SUMMARY | 2025-01-23 12:23 | XMS_ITS | Encounter Summary ---
Author Organization [facility] Address [address] [place] [address] Care Team Providers Care Law Firm Receptionist Name Role Phone Chelsey Mcwilliams MD Primary Care Prov ider Encounter Details Date Type Department Care Team (Late st Contact Info) Description 01/16/2025 Results Follow-Up Adult Medicine [address] [phone] Farrah Mac PA [address] [place], [place] Social History Tobacco Use Types Packs/Day Years [...] care for your loved ones. For example, special needs child caregiver or elderly care for an older adult? [...] on file documented as of this encounter Plan of Treatment Upcoming Encounters Date Type Department Care Team (Late st Contact Info) Description 04/16/2025 8:00 AM EDT Office Visit Adult [address] [phone] Chelsey Mcwilliams MD [address] [place], [place] documented as of this encounter Visit Diagnoses Not on filedocumented in this encounter Additional Health Concerns Assessment Noted Time PHQ-9 Depression Total Score: 0 01/17/20 25 8:00 AM EST documented as of this encounter Care Teams Law Firm Receptionist Relationship Specialty Start Date End Date Chelsey Mcwilliams MD [address] [place] [address] PCP - General Internal Medicine 01/10/24 documented as of this encounter
--- OUTSIDE RECORDS SUMMARY | 2025-01-23 12:23 | XMS_ITS | Encounter Summary ---
Author Organization [facility] Address [address] [place] [address] Care Team Providers Care Senior Property Manager Name Role Phone Chelsey Mcwilliams MD Primary Care Prov ider Encounter Details Date Type Department Care Team (Late st Contact Info) Description 01/08/2025 Results Follow-Up Adult Medicine [address] [phone] Farrah Mac PA [address] [place], [place] Social History Tobacco Use Types Packs/Day Years Used Date Smoking Tobacco: Never Smokeless Tobacco: Never Alcohol Use Standard Drinks/Week Comments No 0 (1 standard drink = 0.6 oz pur e alcohol) Food Access & Nutrition Answer Date Rec orded Do you have access to a vari ety of food including fruits and vegetables? Yes 02/25/2024 Health Literacy Answer Date Recorded How often do you need to hav e someone help you when you read instructions, pamphlets, or other written material from your doctor or pharmacy? Always 02/25/2024 Caregiver: How often do you need to have someone help you when you read instructions, pamphlets, or other written material from your doctor or pharmacy? Not on file 02/25/2024 Financial Risk Answer Date Recorded How hard is it for you to pa y for the very basics like food, housing, medical care, and air conditioning / heating? Somewhat hard 02/25/2024 Transportation Answer Date Recorded Has the lack of transportati on kept you from meetings, work, or from getting things needed for daily living? No Has the lack of transportati on kept you from medical appointments or from getting medications? No 02/25/2024 Social Isolation Answer Date Recorded How often do you feel lonely or isolated from th ose around you? Rarely 02/25/2024 Food Risk Answer Date Recorded Within the past 12 months we worried whether our food would run out before we got money to buy more. Sometimes true 025 Within the past 12 months th e food we bought just didn't last and we didn't have money to get more. Never true 02/25/2024 Education Answer Date Recorded Do you think completing more education or training, like finishing a GED, going to college, or learning a trade, would be helpful for you? N/A 02/25/2024 Employment and Income Answer Date Recor ded During the last four weeks, have you been actively looking for work? No 02/25/2024 Living Situation Answer Date Recorded What is your living situation? Unrecognized valu e 02/25/2024 Interpersonal Safety Answer Date Record ed Physical [...] 8:00 AM EDT Office Visit Adult Medicine [address] [phone] Chelsey Mcwilliams MD [address] [place] [address] documented as of this encounter Visit Diagnoses Not on filedocumented in this encounter Additional Health Concerns Assessment Noted Time PHQ-9 Depression Total Score: 9 02/24/19 25 2:58 PM EST documented as of this encounter Care Teams Senior Property Manager Relationship Specialty Start Date End Date Chelsey Mcwilliams MD [address] [place] [id number] PCP - General Internal Medicine 01/10/24 documented as of this encounter
== END 2025-01-23 10:56 | disposition home or self-care (01) ==
LOC: HO.HPHYS 10:04
PROVIDERS: PCP Internal Medicine; Visit Provider Physician Assistant
DX: M70.61 Trochanteric bursitis, right hip (principal)
CPT/HCPCS: 20610

== ENCOUNTER → 2025-01-23 10:03 | Outpatient (BNVA) | payer MEDICARE, MEDICAID, SELFPAY | PROVIDERS: PCP Internal Medicine; Visit Provider Physician Assistant | DX: M70.61 Trochanteric bursitis, right hip (principal) | CPT/HCPCS: 20610; J2003; J3301 ==